=== PATIENT | female | born 1940 | race Caucasian/White ===

== ENCOUNTER → 2021-07-24 | Outpatient (CLI) | payer MEDICARE, BC ==
[~2021-07-24] MED LIST: ASPI325T6 PO; BETAPACE 80MG80 MG PO; CALCIUM + D 6001 TA1 PO; CEPHALEXIN500 M1 PO; CINNAMON500 MG PO; HCTZ12.5TAB PO; HUMULIN R 10100 U/ML SC; LANTUS100 U/ML SC; MULTI VITAMINS1 TAB PO; NEVANAC 3 ML3 ML OS; PRINIVIL5 MG PO; SUPER EPA 1201200 MG PO; TENORMIN 2525 MG/TAB PO
== END ==
LOC: ZCOL.LAB 17:58
DX: E13.621 Other specified diabetes mellitus with foot ulcer (principal)

== ENCOUNTER → 2021-09-04 | Outpatient (CLI) | payer MEDICARE, BC | LOC: ZCOL.LAB 17:47 | DX: M86.9 Osteomyelitis, unspecified (principal) ==